=== PATIENT | female | born 1995 | race Caucasian/White ===

== ENCOUNTER 2022-11-08 12:42 | Emergency (ER) | payer MEDICAID ==
[~2022-11-08] VITALS: Ht 162.6 cm; Wt 61.0 kg
[2022-11-08 13:08] VITALS: O2SAT 100
[2022-11-08] MEDS ORDERED: ACETAMINOPHEN 325MG TABLET PO ONE (18:00)
[2022-11-08 18:02] LABS: BASOPHILS % 0.2 % (0.0-2.0); DIFFERENTIAL COMMENT 0; EOSINOPHILS % 1.3 % (0.0-5.0); HEMATOCRIT. 34.6 % (36.0-48.0); HEMOGLOBIN. 11.4 g/dL (12.0-16.0); LYMPHOCYTES % 13.4 % (20.0-50.0); MEAN CORPUSCULAR HEMOGLOBIN 25.9 pg (28.0-32.0); MEAN CORPUSCULAR HGB CONC 32.9 g/dL (31.0-37.0); MEAN CORPUSCULAR VOLUME 78.7 fL (81.0-99.0); MEAN PLATELET VOLUME 8.1 fl (7.4-10.4); MONOCYTES % 11.8 % (2.0-8.0); NEUTROPHILS % 73.3 % (40.0-76.0); PLATELET 335 x1000/uL (130-400); RED CELL DISTRIBUTION WIDTH 16.2 % (11.6-14.6); WHITE BLOOD COUNT 9.5 x1000/uL (4.5-11.0)
[2022-11-08] MEDS ORDERED: IBUP-2028 MT (18:04)
[2022-11-08] MEDS ORDERED: HYDR-4001 MT (18:04)
[2022-11-08] MEDS ORDERED: AMOX-494 MT (18:04)
[2022-11-08] MEDS ORDERED: KETOROLAC 60MG/2ML VIAL IM ONE (18:15)
[2022-11-08 19:16] VITALS: BP 126/75; PULSE 80; RESP 20; TEMP 97.9
== END 2022-11-08 19:19 | disposition home or self-care (01) ==
LOC: ER 14:36
DX: K04.7 Periapical abscess without sinus (principal)
CPT/HCPCS: 99283; 85025; 36415; 96372; J1885